=== PATIENT | female | born 1960 | race Caucasian/White ===

== ENCOUNTER → 2017-02-04 | Day surgery (SDC) | payer BC, OTHER ==
[2017-02-01 16:37] VITALS: BMI 25.5
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
[~2017-02-04] MED LIST: MIDAZOLAM HCL 2 MG/2 ML SINGLE DOSE VIAL ONE; PROPOFOL 20 ML ONE
[2017-02-04 06:36] VITALS: BP 125/80; PULSE 92; TEMP 97.9
== END | disposition home or self-care (01) ==
LOC: JASU-SURG 06:04
PROVIDERS: ATTEND Obstetrics & Gynecology
PROC: 0UJH8ZZ Inspection of Vagina and Cul-de-sac, Via Natural or Artificial Opening Endoscopic (ICD-10-PCS; principal; 2017-02-04)
DX: Z53.8 Procedure and treatment not carried out for other reasons (principal)
CPT/HCPCS: 86850; 86900; 86901

== ENCOUNTER 2017-03-15 07:03 | Day surgery (SDC) | payer BC, OTHER ==
[2017-03-11 10:39] VITALS: BMI 25.5
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
[2017-03-15] MEDS ORDERED: ACETAMINOPHEN 500 MG TABLET (FP) PO PRN (09:47)
[2017-03-15] MEDS ORDERED: ONDANSETRON 4 MG/2 ML VIAL IVPUSH PRN (09:47)
[2017-03-15] MEDS ORDERED: LACTATED RINGERS SOLUTION 1,000 ML IV SCH (10:00)
--- NOTE | 2017-03-15 10:35 | OP ---
DATE OF OPERATION: 03/15/2017 PREOPERATIVE DIAGNOSIS: Postmenopausal bleeding. POSTOPERATIVE DIAGNOSIS: Postmenopausal bleeding. OPERATIVE PROCEDURE: Hysteroscopy with dilatation and curettage. SURGEON: Silvio West MD ANESTHESIA: MAC. ESTIMATED BLOOD LOSS: 1 mL. The patient was brought to the operating room. Placed in the supine position. Given anesthesia by the laborer hide house. Placed in the lithotomy position. Prepped and draped in the usual manner. The patient was examined. The uterus was noted to be anteverted, normal sized. Adnexae negative. The anterior lip of the cervix was grasped with a tenaculum. The uterus was sounded to 7 cm. The cervix was then dilated with Marvin dilators. Hysteroscopy was performed. The endometrial cavity revealed an atrophic endometrium. A D & C was carried out using a small curet. A very small amount of tissue was obtained which concurred with the diagnosis of atrophic endometrium. The patient tolerated procedure well. Hemostasis was great. The patient was then transferred to the recovery room in good condition. Guillermo VELAZCO/[id number]
[2017-03-15 11:51] VITALS: BP 129/70; PULSE 78; TEMP 98
--- NOTE | 2017-03-16 11:44 | PATH ---
Surgical Pathology Report Patient Name: ALEXA RAYMUNDO [facility]. Rec. #: [id number] /Age/Gender: 1960 (Age: 56) / F Account: [id number] Location: [facility] SURGICAL Taken: 03/15/2017 Received: 03/15/2017 Reported: 03/16/2017 Physicians: Silvio West M.D. Specimen(s) Received ENDOMETRIAL TISSUE Clinical History Postmenopausal bleeding Final Diagnosis ENDOMETRIAL TISSUE: SCANT STRIPS OF ATROPHIC APPEARING ENDOMETRIUM. SCANT FRAGMENTS OF BENIGN ENDOCERVICAL TISSUE. FRAGMENTS OF BENIGN SQUAMOUS EPITHELIUM. Electronically Signed Heath Jang M.D. Gross Description Received in formalin labeled "endometrial tissue" is a 0.2 x 0.2 x 0.1 cm aggregate of ingram-brown soft tissue fragments. The formalin is filtered and the specimen is entirely submitted in one cassette. /03/15/2017 saudi03/15/2017
== END 2017-03-15 12:55 | disposition home or self-care (01) ==
LOC: JASU-SURG 07:03
PROVIDERS: ATTEND Obstetrics & Gynecology
PROC: 0UDB8ZZ Extraction of Endometrium, Via Natural or Artificial Opening Endoscopic (ICD-10-PCS; principal; 2017-03-15 08:30)
DX: N95.0 Postmenopausal bleeding (principal)
CPT/HCPCS: 86850; 86900; 86901; 88305-TC; 94760

== ENCOUNTER 2017-03-15 20:44 | Emergency (ER) | payer BC, OTHER ==
[2017-03-15 20:52] VITALS: BP 152/93; PULSE 82; TEMP 98.4; BMI 25.4
[2017-03-15] MEDS ORDERED: diphenhydrAMINE HCL 25 MG CAPSULE (FP) PO ONE ×2 (21:42→22:58)
[2017-03-15] MEDS ORDERED: RANITIDINE HCL 150 MG TABLET (FP) ONE (22:02)
--- NOTE | 2017-03-15 22:58 | PDOC ---
History of Present Illness - General Chief Complaint: Allergic Reaction Stated Complaint: ALLERGIC REACTION Time Seen by Provider: 03/15/17 21:07 History Source: Patient, Spouse Exam Limitations: No Limitations - History of Present Illness Initial Comments: 03/15/17 22:53 Patient here with complaints of itching and lesions noted to left side of her face. Has multiple medical ALLERGIES and had a procedure/cystoscopy today. Worries that some anesthetic properties have caused her an ALLERGIC reaction. Denies swelling to tongue or airway difficulties, denies chest pain palpitations or shortness of breath, no wheezing. Has some itchiness to her forehead without lesions but also has some blotchy lesions to bilateral cheeks. Instructed to come to emergency department by her PMD after taking Benadryl at home. Timing/Duration: reports: constant Severity: reports: mild, moderate Past History - Past Medical History Allergies/Adverse Reactions: Allergies Allergy/AdvReac Type Severity Reaction Status Date / Time codeine Allergy Rash Verified 03/15/17 20:48 ibuprofen Allergy Rash Verified 03/15/17 20:48 magnesium Allergy Rash Verified 03/15/17 20:48 oxycodone HCl [From Percocet] Allergy Rash Verified 03/15/17 20:48 Penicillins Allergy Rash Verified 03/15/17 20:48 prednisone Allergy Verified 03/15/17 20:48 Sulfa (Sulfonamide Allergy Rash Verified 03/15/17 20:48 Antibiotics) tramadol HCl [From Ultracet] Allergy Rash Verified 03/15/17 20:48 vancomycin Allergy anaphalaxis Verified 03/15/17 20:48 Home Medications: Ambulatory Orders Aspirin Coated [Ecotrin -] 81 mg PO PRN PRN 12/03/13 Acetaminophen [Tylenol] 325 mg PO PRN PRN 02/01/17 Albuterol Sulfate Inhaler - [Ventolin Hfa Inhaler -] 1 - 2 inh PO Q4H PRN Famotidine [Pepcid -] 20 mg PO DAILY #30 tablet 03/15/17 Anemia: No Asthma: Yes Cancer: Yes (ANAL RECTAL 3YRS AGO) Cardiac Disorders: Yes (STABLE ANGINA) CVA: Yes (TIA) COPD: No CHF: No Dementia: No Diabetes: No GI Disorders: Yes (ACID REFLUX) Disorders: Yes (STONES) HTN: Yes Hypercholesterolemia: Yes Liver Disease: Yes (ENLARGED LIVER - CYST) Seizures: No Thyroid Disease: No - Surgical History Appendectomy: No Cardiac Surgery: No Cholecystectomy: No Lung Surgery: No Neurologic Surgery: No Orthopedic Surgery: Yes (ARTHROSCOPY LEFT KNEE) - Psycho/Social/Smoking Cessation Hx Suicidal Ideation: No Smoking History: Former smoker Have you smoked in the past 12 months: No If you are a former smoker, when did you quit?: QUIT ' Information on smoking cessation initiated: No Hx Alcohol Use: Yes (SOCIALLY) Drug/Substance Use Hx: No Substance Use Type: Alcohol Hx Substance Use Treatment: No Review of Systems - Review of Systems Able to Perform ROS?: Yes Is the patient limited Slovak proficient: Yes Constitutional: Yes: Symptoms Reported, See HPI, Malaise HEENTM: Yes: Symptoms Reported, See HPI, Other (some itching to forehead without swelling to nose lips and tongue or throat). No: Nose Congestion, Throat Pain, Throat Swelling, Difficulty Swallowing Respiratory: Yes: See HPI. No: Symptoms reported, Cough ABD/GI: Yes: Symptoms Reported : No: Symptoms Reported Musculoskeletal: No: Symptoms Reported Integumentary: Yes: Symptoms Reported, See HPI, Lesions ( bilateral cheeks, nonvesicular, not Wheal appearance) Neurological: No: Symptoms reported All Other Systems: Reviewed and Negative *Physical Exam - Vital Signs Last Vital Signs Temp Pulse Resp BP Pulse Ox 98.4 F 82 18 152/93 98 03/15/17 20:49 03/15/17 20:49 03/15/17 20:49 03/15/17 20:49 03/15/17 20:49 - Physical Exam General Appearance: Yes: Nourished, Appropriately Dressed. No: Apparent Distress HEENT: positive: PAUL, Normal ENT Inspection, TMs Normal, Pharynx Normal, Rhinorrhea Neck: positive: Supple, Lymphadenopathy (R), Lymphadenopathy (L). negative: Tender Respiratory/Chest: positive: Lungs Clear, Normal Breath Sounds Cardiovascular: positive: Regular Rhythm Gastrointestinal/Abdominal: positive: Soft. negative: Tender Extremity: positive: Normal Capillary Refill, Normal Inspection Integumentary: positive: Normal Color, Warm, Pale, Swelling, Other ( maculopapular rash to left cheek and for scattered lesions to right cheek. 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 Unable to give prednisone as patient has adverse reactions. States feels well, and ready for discharge *DC/Admit/Observation/Transfer Diagnosis at time of Disposition: Allergic reaction Qualifiers: Encounter type: initial encounter Qualified Code(s): T78.40XA - Allergy, unspecified, initial encounter - Discharge Dispostion Disposition: HOME Condition at time of disposition: Stable Admit: No - Prescriptions Prescriptions: Famotidine [Pepcid -] 20 mg PO DAILY #30 tablet - Referrals Referrals: Kamron Gonzales [Primary Care Provider] - - Patient Instructions Printed Discharge Instructions: DI for Adverse Drug Reaction -- Allergic Additional Instructions: Rest, keep cool and dry- avoid strenuous activity or hot /humid environments Less hot showers, no abrasive soaps May use Benadryl at night for antihistamine, Zyrtec/ Michaela or Claritin for daytime antihistamine use to help with itching for 4 days Pepcid 20 mg twice a day for 4 days Followup with PMD in one week if no resolution Make appointment with electric motor tester for evaluation when possible Return immediately to emergency department or call 911 for any worsening symptoms including facial swelling and tongue swelling difficulty breathing, wheezing or other signs of ALLERGIC reaction . - Post Discharge Activity Work/School Note: Back to Work
[2017-03-15] MEDS ORDERED: RANITIDINE HCL 150 MG TABLET (FP) PO ONE (22:59)
== END 2017-03-15 23:08 | disposition home or self-care (01) ==
LOC: JERFT 20:44
DX: T78.40XA Allergy, unspecified, initial encounter (principal); Z98.890 Other specified postprocedural states; I10 Essential (primary) hypertension; J45.909 Unspecified asthma, uncomplicated; K21.9 Gastro-esophageal reflux disease without esophagitis; Z86.73 Personal history of transient ischemic attack (TIA), and cerebral infarction without residual deficits
CPT/HCPCS: 99281-25

== ENCOUNTER 2019-03-03 13:44 | Emergency (ER) | payer BC, OTHER ==
[2019-03-03 14:02] VITALS: BMI 27.6
[2019-03-03] MEDS ORDERED: ONDANSETRON *ODT* 4 MG TABLET SL ONE (14:36)
[2019-03-03] MEDS ORDERED: ACETAMINOPHEN 1000 MG/100 ML VIAL (NON FORMULARY) IVPB ONE (14:41)
[2019-03-03] MEDS ORDERED: ACETAMINOPHEN INJECTION 100 ML IVPB ONE (14:50)
[2019-03-03] MEDS ORDERED: ONDANSETRON *ODT* 4 MG TABLET ONE (14:50)
[2019-03-03 15:12] LABS: BASO % 0.7 % (0-2.0); EOS % 7.9 % (0-4.5); HEMOGLOBIN 12.3 GM/dL (10.7-15.3); LYMPH % 23.8 % (8-40); MCH 30.8 pg (25.7-33.7); MCHC 33.2 g/dl (32.0-36.0); MEAN CELL VOLUME 92.7 fl (80-96); MEAN PLT VOLUME 8.8 fl (7.5-11.1); NEUT % 58.6 % (42.8-82.8); PLATELET COUNT 230 K/MM3 (134-434); RBC 3.99 M/mm3 (3.60-5.2); RDW 13.8 % (11.6-15.6); WHITE BLOOD COUNT 4.8 K/mm3 (4.0-10.0)
--- NOTE | 2019-03-03 15:22 | PDOC ---
*Physical Exam - Vital Signs Last Vital Signs Temp Pulse Resp BP Pulse Ox 98.4 F 89 16 144/73 98 03/03/19 13:53 03/03/19 13:53 03/03/19 13:53 03/03/19 13:53 03/03/19 13:53 ED Treatment Course - LABORATORY CBC & Chemistry Diagram: 03/03/19 14:30 03/03/19 14:30 - Medications Given in the ED: ED Medications Discontinued Medications Generic Name Dose Route Start Last Admin Trade Name Quintni PRN Reason Stop Dose Admin Acetaminophen 1,000 mg 03/03/19 14:41 03/03/19 14:52 Ofirmev Injection - IVPB 03/03/19 14:42 1,000 mg ONCE ONE Administration Diphenhydramine HCl 25 mg 03/03/19 14:37 03/03/19 14:52 Benadryl Injection - IVPUSH 03/03/19 14:38 25 mg ONCE ONE Administration Ondansetron HCl 4 mg 03/03/19 14:36 03/03/19 14:52 Zofran Odt - SL 03/03/19 14:37 4 mg ONCE ONE Administration Medical Decision Making - Medical Decision Making 03/03/19 15:04 58 yo F presenting to the ER with a complaint of difficulty breathing S/p removal of a scalp cyst 4 days ago Since then, she noted swelling beneath her eyes She contacted the Assembler Bicycle who told her the swelling was normal after this procedure Pt was seen at [facility] Pt was told everything looks good and she can follow up prn Pt called the ER and told them that her speech was being affected They told her to come to the ER Pt states that she did not want to go back to [facility] because they did not treat her well She reports concern about her speech today No fevers or chills Pt reports chest pressure now, "like a baby sitting on her chest" She denies shortness of breath Will do: Labs EKG Contact [facility] Re Assess 03/03/19 15:22 Laboratory Tests 03/03/19 14:30 WBC 4.8 Hgb 12.3 Hct 37.0 Plt Count 230 03/03/19 16:00 Laboratory Tests 03/03/19 03/03/19 03/03/19 14:30 14:30 14:30 WBC 4.8 Hgb 12.3 Hct 37.0 Plt Count 230 Sodium 139 Potassium 3.8 Chloride 108 H Carbon Dioxide 25 BUN 10 Creatinine 0.8 Random Glucose 98 Lactic Acid 1.6 Creatine Kinase 58 Troponin I < 0.02 03/03/19 16:11 EKG - Twelve-lead EKG was performed and reviewed by me. There is normal sinus rhythm with a normal rate. The axis is normal. The intervals are normal. There are no ST or T wave abnormalities. Impression: Normal twelve-lead EKG 03/03/19 18:08 call placed to [facility] The patient was seen there yesterday S/p CTA chest, Abd and pelvis, no pathology noted Will do trop x 2 Pt asked to follow up with Surgeons at [facility] Will NO provide abx as I see no erythema, no drainage and this patient has MANY allergies Post operative swelling *DC/Admit/Observation/Transfer - Discharge Dispostion Condition at time of disposition: Stable - Referrals Referrals: Kamron Gonzales [Primary Care Provider] - - Patient Instructions - Post Discharge Activity
--- NOTE | 2019-03-03 15:36 | PDOC ---
History of Present Illness - General Chief Complaint: Allergic Reaction Stated Complaint: INFECTION Time Seen by Provider: 03/03/19 14:22 History Source: Patient Exam Limitations: Clinical Condition - History of Present Illness Initial Comments: 03/03/19 15:29 Patient with past medical history of Multiple Sclerosis present with complaint of redness to face, headache, feeling of swelling to face. Patient also reported change of speech due to swelling of the face and sensation of swelling in the throat. Patient had lipoma removed from the scalp 5 days ago and [facility] and discharged home on no medication as per patient and started having redness to face and headache postop. Patient report procedure was done in dermatology office on outpatient clinic. Patient report calling dermatology office who did the procedure and was advised is in normal symptoms. Patient reported going to [facility] yesterday with same symptoms and was discharged on no meds and was told eye symptoms was normal. Patient reported no started feeling tightness in the chest with dizziness. She reported tactile fever which she reports started since day of the procedure .Denies nausea, vomiting. Timing/Duration: other (5 days) Past History - Past Medical History Allergies/Adverse Reactions: Allergies Allergy/AdvReac Type Severity Reaction Status Date / Time codeine Allergy Rash Verified 03/03/19 17:14 ibuprofen Allergy Rash Verified 03/03/19 17:14 magnesium Allergy Rash Verified 03/03/19 17:14 oxycodone HCl [From Percocet] Allergy Rash Verified 03/03/19 17:14 Penicillins Allergy Rash Verified 03/03/19 17:14 prednisone Allergy Verified 03/03/19 17:14 Sulfa (Sulfonamide Allergy Rash Verified 03/03/19 17:14 Antibiotics) tramadol HCl [From Ultracet] Allergy Rash Verified 03/03/19 17:14 vancomycin Allergy anaphalaxis Verified 03/03/19 17:14 Home Medications: Ambulatory Orders Aspirin Coated [Ecotrin -] 81 mg PO PRN PRN 12/03/13 Acetaminophen [Tylenol] 325 mg PO PRN PRN 02/01/17 Albuterol Sulfate Inhaler - [Ventolin Hfa Inhaler -] 1 - 2 inh PO Q4H PRN Ondansetron HCl [Zofran] 4 mg PO DAILY 03/03/19 Anemia: No Asthma: Yes Cancer: Yes (ANAL RECTAL 3YRS AGO) Cardiac Disorders: Yes (STABLE ANGINA) CVA: Yes (TIA) COPD: No CHF: No Dementia: No Diabetes: No GI Disorders: Yes (ACID REFLUX) Disorders: Yes (STONES) HTN: Yes Hypercholesterolemia: Yes Liver Disease: Yes (ENLARGED LIVER - CYST) Seizures: No Thyroid Disease: No - Surgical History Appendectomy: No Cardiac Surgery: No Cholecystectomy: No Lung Surgery: No Neurologic Surgery: No Orthopedic Surgery: Yes (ARTHROSCOPY LEFT KNEE) - Immunization History Immunization Up to Date: No - Suicide/Smoking/Psychosocial Hx Smoking History: Never smoked Have you smoked in the past 12 months: No If you are a former smoker, when did you quit?: QUIT ' Information on smoking cessation initiated: No Hx Alcohol Use: No Drug/Substance Use Hx: No Substance Use Type: Alcohol Hx Substance Use Treatment: No Review of Systems - Review of Systems Able to Perform ROS?: Yes Is the patient limited Portuguese proficient: No Constitutional: Yes: Fever (tactile) HEENTM: No: Symptoms Reported, See HPI, Eye Pain, Blurred Vision, Tearing, Recent change in vision, Double Vision, Cataracts, Ear Pain, Ocular Prothesis, Ear Discharge, Nose Pain, Nose Congestion, Tinnitus, Nose Bleeding, Hearing Loss , Throat Pain, Throat Swelling, Mouth Pain, Dental Problems, Difficulty Swallowing, Mouth Swelling, Other Respiratory: Yes: Symptoms reported. No: See HPI, Cough, Orthopnea, Shortness of Breath, SOB with Exertion, SOB at Rest, Stridor, Wheezing, Productive cough, Hemoptysis, Other Cardiac (ROS): Yes: Symptoms Reported, See HPI, Lightheadedness, Chest Tightness. No: Chest Pain, Edema, Irregular Heart Rate, Palpitations, Syncope ABD/GI: No: Nausea, Vomiting Neurological: Yes: See HPI, Headache, Dizziness. No: Numbness, Paresthesia, Pre -Existing Deficit, Tingling, Weakness All Other Systems: Reviewed and Negative *Physical Exam - Vital Signs Last Vital Signs Temp Pulse Resp BP Pulse Ox 98.4 F 89 16 144/73 98 03/03/19 13:53 03/03/19 13:53 03/03/19 13:53 03/03/19 13:53 03/03/19 13:53 - Physical Exam General Appearance: Yes: Nourished, Appropriately Dressed, Apparent Distress ED Treatment Course - LABORATORY CBC & Chemistry Diagram: 03/03/19 14:30 03/03/19 14:30 - ADDITIONAL ORDERS Additional order review: 03/03/19 14:30 RBC 3.99 MCV 92.7 MCHC 33.2 RDW 13.8 MPV 8.8 Neutrophils % 58.6 Lymphocytes % 23.8 Monocytes % 9.0 Eosinophils % 7.9 H Basophils % 0.7 - Medications Given in the ED: ED Medications Discontinued Medications Generic Name Dose Route Start Last Admin Trade Name Quintin PRN Reason Stop Dose Admin Acetaminophen 1,000 mg 03/03/19 14:41 03/03/19 14:52 Ofirmev Injection - IVPB 03/03/19 14:42 1,000 mg ONCE ONE Administration Diphenhydramine HCl 25 mg 03/03/19 14:37 03/03/19 14:52 Benadryl Injection - IVPUSH 03/03/19 14:38 25 mg ONCE ONE Administration Ondansetron HCl 4 mg 03/03/19 14:36 03/03/19 14:52 Zofran Odt - SL 03/03/19 14:37 4 mg ONCE ONE Administration Medical Decision Making - Medical Decision Making 03/03/19 15:32 Patient with no significant past medical history present with complaint of redness to face, headache, feeling of swelling to face. Patient also reported change of speech due to swelling of the face and sensation of swelling in the throat. Patient had lipoma removed from the scalp 5 days ago and [facility] and discharged home on no medication as per patient and started having redness to face and headache postop. Patient report procedure was done in dermatology office on outpatient clinic. Patient report calling dermatology office who did the procedure and was advised is in normal symptoms. Patient reported going to [facility] yesterday with same symptoms and was discharged on no meds and was told eye symptoms was normal. Patient reported no started feeling tightness in the chest with dizziness. She reported tactile fever which she reports started since day of the procedure .Denies nausea, vomiting. Exam significant for subjective pain to face and patient complaining of worsening headache which is worse when she laid flat. Normal lung exam and normal cardio exam. Mild erythema to face with no evidence of cellulitis. Patient talking in full sentences. Extraocular muscle intact and pupils equal and refracted to light. Linear laceration to left side of scalp with [address] area and CBC, CMP and cardiac profile lab ordered. Lactate level ordered. EKG ordered. IV Tylenol 1 g ordered for pain. Reassess after lab results 03/03/19 16:03 CBC and chemistry labs unremarkable. cardiac profile negative. EKG wnl 03/03/19 18:33 Patient report had imaging done in [facility] yesterday when she went to ED. Call made to [facility] and spoke to provider who confirms chest , abdomen and pelvis CT with contrast done yesterday which was negative. Provider also report DVT of LE study was also done with negative results. Repeat cardiac enzyme labs ordered and Patient will be discharge home of Tylenol to follow-up with surgery if rpt trop is neg. 03/03/19 19:03 repeat trop neg. Patient report feeling much better with benadryl. Stable for discharge *DC/Admit/Observation/Transfer Diagnosis at time of Disposition: Myalgia, Feeling of chest tightness Headache Qualifiers: Headache type: unspecified Headache chronicity pattern: acute headache Intractability: not intractable Qualified Code(s): R51 - Headache - Discharge Dispostion Disposition: HOME Condition at time of disposition: Stable Decision to Admit order: No - Referrals Referrals: Kamron Gonzales [Primary Care Provider] - - Patient Instructions Additional Instructions: Your labs was completely normal including your cardiac labs. EKG was normal. Take Tylenol as needed for pain. Follow-up with back your surgeon - Post Discharge Activity
[2019-03-03 15:42] LABS: ALBUMIN 3.7 g/dl (3.4-5.0); ALK PHOS 97 U/L (45-117); ANION GAP 7 MMOL/L (8-16); BILIRUBIN,TOTAL 0.4 mg/dL (0.2-1); BLOOD UREA NITROGEN 10 mg/dL (7-18); CALCIUM 8.9 mg/dL (8.5-10.1); CHLORIDE 108 mmol/L (98-107); CO2 25 mmol/L (21-32); CREATININE 0.8 mg/dL (0.55-1.3); GLUCOSE,RANDOM 98 mg/dL (74-106); POTASSIUM 3.8 mmol/L (3.5-5.1); SGOT/AST 14 U/L (15-37); SGPT/ALT 20 U/L (13-61); SODIUM 139 mmol/L (136-145)
[2019-03-03 19:07] VITALS: BP 134/88; PULSE 72; TEMP 98.3
--- NOTE | 2019-03-04 12:28 | EKG ---
Test Reason : Blood Pressure : / mmHG Vent. Rate : 073 BPM Atrial Rate : 073 BPM P-R Int : 152 ms QRS Dur : 080 ms QT Int : 378 ms P-R-T Axes : 037 027 054 degrees QTc Int : 416 ms NORMAL SINUS RHYTHM NORMAL ECG WHEN COMPARED WITH ECG OF 31-DEC-2004 10:17, NO SIGNIFICANT CHANGE WAS FOUND Confirmed by VINCENZO WALLACE MD ([id number]) on 03/04/2019 12:28:18 PM Referred By: Confirmed By:VINCENZO WALLACE MD
== END 2019-03-03 19:17 | disposition home or self-care (01) ==
LOC: JER 13:44
PROC: 3E033GC Introduction of Other Therapeutic Substance into Peripheral Vein, Percutaneous Approach (ICD-10-PCS; principal; 2019-03-03)
PROC: 3E033NZ Introduction of Analgesics, Hypnotics, Sedatives into Peripheral Vein, Percutaneous Approach (ICD-10-PCS; 2019-03-03)
DX: R51 Headache (principal); R07.89 Other chest pain; M79.10 Myalgia, unspecified site; L53.8 Other specified erythematous conditions; Z98.890 Other specified postprocedural states; I10 Essential (primary) hypertension; I20.8 Other forms of angina pectoris; E78.00 Pure hypercholesterolemia, unspecified; Z87.09 Personal history of other diseases of the respiratory system; Z85.048 Personal history of other malignant neoplasm of rectum, rectosigmoid junction, and anus
CPT/HCPCS: 36415; 80053; 82550; 83605; 84484; 85025; 93005; 93010; 99283-25; J0131; Q0162

== ENCOUNTER 2024-03-14 15:59 | Observation (INO) | payer BC, OTHER ==
[2024-03-14 16:09] VITALS: BMI 27.4
[2024-03-14] MEDS ORDERED: METHOCARBAMOL 500 MG TABLET ONE (16:51)
[2024-03-14] MEDS ORDERED: ACETAMINOPHEN 500 MG TABLET (FP) ONE (16:51)
[2024-03-14] MEDS: METHOCARBAMOL 500 MG TABLET PO ONE (16:52)
[2024-03-14] MEDS: ACETAMINOPHEN 500 MG TABLET (FP) PO ONE (16:52)
[2024-03-14] MEDS ORDERED: LIDOCAINE 4% PATCH TP ONE (18:54)
[2024-03-14] MEDS ORDERED: diazePAM 5 MG TABLET ONE (18:55)
[2024-03-14] MEDS: diazePAM 2 MG TABLET PO ONE (18:56)
[2024-03-14] MEDS: LIDOCAINE 4% PATCH TP ONE (18:56)
[2024-03-14] MEDS: LIDOCAINE PATCH REMOVAL MC SCH ×2 (22:02→23:23)
[2024-03-14 22:18] LABS: BASO % 0.7 % (0-2.0); EOS % 1.8 % (0-4.5); HEMATOCRIT 39.4 % (32.4-45.2); HEMOGLOBIN 13.3 GM/dL (10.7-15.3); LYMPH % 30.3 % (8-40); MCH 32.1 pg (25.7-33.7); MCHC 33.8 g/dl (32.0-36.0); MEAN CELL VOLUME 94.9 fl (80-96); MEAN PLT VOLUME 8.4 fl (7.5-11.1); MONO % 9.8 % (3.8-10.2); NEUT % 57.4 % (42.8-82.8); PLATELET COUNT 218 10^3/uL (134-434); RBC 4.16 M/mm3 (3.60-5.2); RDW 13.5 % (11.6-15.6); WHITE BLOOD COUNT 6.1 K/mm3 (4.0-10.0)
[2024-03-14 23:01] LABS: CALCIUM 8.9 mg/dL (8.5-10.1); POTASSIUM 4.8 mmol/L (3.5-5.1)
[2024-03-14 23:02] LABS: ALBUMIN 3.7 g/dl (3.4-5.0); BLOOD UREA NITROGEN 11.1 mg/dL (7-18)
[2024-03-14 23:06] LABS: CREATININE 0.9 mg/dL (0.55-1.3)
[2024-03-14 23:07] LABS: BILIRUBIN,TOTAL 0.8 mg/dL (0.2-1); TOT PROT 7.3 g/dl (6.4-8.2)
[2024-03-14] MEDS ORDERED: ALBUTEROL SO4 HFA INHALER IH PRN (23:20)
[2024-03-14] MEDS ORDERED: ACETAMINOPHEN 1000 MG/100 ML BAG IVPB PRN ×2 (23:23→23:37)
[2024-03-14] MEDS ORDERED: CYCLOBENZAPRINE HCL 5 MG TABLET ONE (23:45)
[2024-03-14] MEDS: CYCLOBENZAPRINE HCL 10 MG TABLET (FP) PO SCH (23:53)
[2024-03-14] MEDS: ACETAMINOPHEN 325 MG TABLET (FP) PO SCH (23:53)
[2024-03-14] MEDS: ASPIRIN COATED 81 MG TABLET.EC PO SCH (23:53)
[2024-03-15 04:01] LABS: EPI CELLS 5 /uL (0-25.1); HYALINE CASTS 1 /uL (0-3.1); PH,URINE 5.5 (5.0-8.0); URINE APPEARANCE CLEAR; URINE BACTERIA 6 /uL (0-1359); URINE BILIRUBIN NEGATIVE (NEGATIVE); URINE COLOR YELLOW; URINE GLUCOSE (UA) NEGATIVE (NEGATIVE); URINE KETONE NEGATIVE (NEGATIVE); URINE LEUK ESTERASE TRACE (NEGATIVE); URINE NITRITE NEGATIVE (NEGATIVE); URINE PROTEIN NEGATIVE (NEGATIVE); URINE RBC 9 /uL (0-23.9); URINE UROBILINOGEN 0.2 mg/dL (0.2-1.0); URINE WBC 30 /uL (0-25.8)
[2024-03-15] MEDS: ACETAMINOPHEN 500 MG TABLET (FP) PO SCH (06:51)
[2024-03-15] MEDS: LIDOCAINE PATCH REMOVAL MC ONE (06:53)
[2024-03-15] MEDS ORDERED: traMADol HCL 50 MG TABLET PO PRN (08:02)
[2024-03-15 08:49] LABS: BASO % 0.6 % (0-2.0); EOS % 3.1 % (0-4.5); HEMATOCRIT 35.8 % (32.4-45.2); HEMOGLOBIN 12.4 GM/dL (10.7-15.3); LYMPH % 27.3 % (8-40); MCH 32.3 pg (25.7-33.7); MCHC 34.6 g/dl (32.0-36.0); MEAN CELL VOLUME 93.3 fl (80-96); MEAN PLT VOLUME 8.5 fl (7.5-11.1); MONO % 10.8 % (3.8-10.2); NEUT % 58.2 % (42.8-82.8); PLATELET COUNT 192 10^3/uL (134-434); RBC 3.83 M/mm3 (3.60-5.2); WHITE BLOOD COUNT 4.9 K/mm3 (4.0-10.0)
[2024-03-15 09:09] LABS: POTASSIUM 3.9 mmol/L (3.5-5.1)
[2024-03-15 09:13] LABS: CALCIUM 8.7 mg/dL (8.5-10.1)
[2024-03-15 09:14] LABS: ALBUMIN 3.3 g/dl (3.4-5.0); BLOOD UREA NITROGEN 12.7 mg/dL (7-18); MAGNESIUM 2.1 mg/dL (1.8-2.4)
[2024-03-15 09:16] LABS: CREATININE 0.8 mg/dL (0.55-1.3); PHOSPHOROUS 3.6 mg/dL (2.5-4.9)
[2024-03-15 09:18] LABS: TOT PROT 6.3 g/dl (6.4-8.2)
[2024-03-15] MEDS: ENOXAPARIN NA (PORCINE) 40 MG/0.4 ML DISP.SYRIN SQ SCH (09:26)
[2024-03-15] MEDS: LIDOCAINE 5% TOPICAL PATCH TP SCH (09:26)
[2024-03-15 14:23] VITALS: RESP 18
[2024-03-16] MEDS ORDERED: METHOCARBAMOL 750 MG TABLET PO PRN
[2024-03-16] MEDS ORDERED: METHOCARBAMOL 500 MG TABLET PO PRN
[2024-03-16 12:05] VITALS: BP 118/58; PULSE 83; TEMP 97.9
== END 2024-03-16 13:15 | disposition home or self-care (01) ==
LOC: JER 15:59 → JERFT 15:59 → JERBED 22:59 → J7W 03-15 06:28
PROVIDERS: ADMIT Internal Medicine; ATTEND Internal Medicine
DX: V43.52XA Car driver injured in collision with other type car in traffic accident, initial encounter (principal); Y93.89 Activity, other specified; Y92.410 Unspecified street and highway as the place of occurrence of the external cause; I05.0 Rheumatic mitral stenosis; R13.10 Dysphagia, unspecified; I20.9 Angina pectoris, unspecified; Z86.73 Personal history of transient ischemic attack (TIA), and cerebral infarction without residual deficits; K21.9 Gastro-esophageal reflux disease without esophagitis; C44.91 Basal cell carcinoma of skin, unspecified; J45.909 Unspecified asthma, uncomplicated; E78.5 Hyperlipidemia, unspecified; I10 Essential (primary) hypertension; N20.0 Calculus of kidney; Z88.0 Allergy status to penicillin; Z88.5 Allergy status to narcotic agent; Z88.8 Allergy status to other drugs, medicaments and biological substances
CPT/HCPCS: 36415; 70450-TC; 72100-TC-FY; 72125-TC; 72141-TC; 73521-TC-FY; 80053; 81003; 83735; 84100; 85025; 87086; 97116-GP; 97162-GP; 99285-25; G0378